=== PATIENT | female | born 1980 | race Caucasian/White ===

== ENCOUNTER 2018-01-21 17:46 | Inpatient (IN) | payer OTHER ==
--- NOTE | 2018-01-21 18:12 | HP ---
General Information - Reason for Visit contractions q3 minutes - General Information Maternal Age: 37 Grav: 4 Para: 2 SAB: 1 IEA: 0 Estimated Due Date: 01/24/18 Determined By: Early Ultrasound Maternal Blood Type and Rh: A Negative - Results this Serology/RPR Result: Non-Reactive Rubella Result: Immune HBsAg Result: Negative HIV Result: Negative GBS Culture Result: Negative Past Medical History Delivery History: Hx Uncomplicated Vaginal Delivery Pertinent Past Medical History: Non-Contributory Pertinent Past Surgical History: None Pertinent Family History: Non-Contributory - Antepartal Records Antepartal Records: Reviewed, Uncomplicated Review of Systems Constitutional: Uncomfortable Genitourinary: No Bleeding, No Leaking Fluid Musculoskeletal: Contractions Movement: Normal Exam Allergies/Adverse Reactions: Allergies No Known Allergies Allergy (Verified 01/21/18 17:29) - Measurements Pre- Weight: 130 lb - Exam Breast: Breast Exam Deferred Extremities: No Edema Heart: Normal Rhythm/Heart Sounds HEENT: No Significant Findings Lungs: Clear Bilaterally Rectal: Rectal Exam Deferred Reflexes: DTR 2+ Targeted Exam Findings See L&D Outpatient Visit Provider Note for Findings: N/A Cervical Exam: 7cm Effacement: 80% Station: -1 Presenting Part: Vertex Membrane Status: Intact EFM Findings - External Monitor Findings External Monitor Findings: Accelerations Present, Variability Moderate, Baseline Stable Contractions: Regular, Moderate, 45-90 Seconds Assessment/Plan - Assessment 39 weeks in active labor pt wants an epidural - Plan Plan: Admit - Anticipate Vaginal Delivery
[2018-01-21 18:24] LABS: ABS Basophils 0.1 10^3/ul (0-0.2); ABS Eosinophils 0.3 10^3/ul (0-0.6); ABS Lymphocytes 1.5 10^3/ul (1.0-4.8); ABS Monocytes 0.9 10^3/ul (0-0.8); ABS Neutrophils 8.8 10^3/ul (1.5-7.7); ABS Nucleated RBC 0 10^3/ul; Eosinophil % 2.2 % (0-6); Hematocrit 39 % (35-47); Hemoglobin 13.6 g/dl (12.0-16.0); Lymphocyte % 13.3 % (25-47); Mean Corpuscular HGB Conc 35 g/dl (31-36); Mean Corpuscular Hemoglobin 30 pg (27-31); Mean Corpuscular Volume 88 fL (80-97); Mean Platelet Volume 10.5 um3 (7.4-10.4); Nucleated Red Blood Cells % 0; Platelet Count 112 10^3/ul (150-450); Red Blood Count 4.45 10^6/ul (4.00-5.40); Red Cell Distribution Width 14 % (10.5-15); White Blood Count 11.6 10^3/ul (3.5-10.8)
[2018-01-21] MEDS ORDERED: fentaNYL* 50 MCG/ML 2 ML VIAL (100 MCG VIAL) ONE (18:35)
[2018-01-21] MEDS ORDERED: OBEPIDURAL* 250 ML EPIDURAL ONE (18:36)
[2018-01-21] MEDS ORDERED: Oxytocin in LR* 20 UNITS/1,000 ML BAG IVPB ONE (19:42)
[2018-01-21] MEDS ORDERED: Witch Hazel PAD* JAR TOPICAL PRN (20:05)
[2018-01-21] MEDS ORDERED: Dibucaine 1% 28.35 GM TUBE PR PRN (20:05)
[2018-01-21] MEDS ORDERED: Glycerin ADULT SUPP PR PRN (20:05)
[2018-01-21] MEDS ORDERED: RHO D Immune Globulin (HUMAN)* 300 MCG = 1,500 I.U. INJ IM ONE (20:13)
--- NOTE | 2018-01-21 20:23 | PROCNOTE ---
[facility] OB: Delivery Note - Nursery Level of Nursery: Regular/Bedside - Perineum Perineal Injury: None/Intact Perineal Repair: None - Events Delivery Events of Note: None Apply
[2018-01-21] MEDS ORDERED: Phytonadione NEONATE INJ* 1 MG/0.5 ML AMP ONE (20:52)
[2018-01-21] MEDS ORDERED: Erythromycin OPTH OINT* APPLIC OINT ONE (20:52)
[2018-01-21] MEDS ORDERED: Hepatitis B Vac PF(ENGERIX-B)* 10 MCG/0.5 ML ML SYRINGE - PEDIATRIC ONE (20:53)
[2018-01-21] MEDS ORDERED: Oxytocin in LR* 20 UNITS/1,000 ML BAG IVPB SCH (21:00)
[2018-01-22] MEDS: Ibuprofen TAB* 600 MG PO PRN ×4 (00:50→20:48)
[2018-01-22] MEDS: Docusate CAP* 100 MG PO SCH ×4 (00:50→20:49)
[2018-01-22] MEDS: Acetaminophen TAB* 325 MG PO PRN ×2 (00:51→12:56)
[2018-01-22 06:29] LABS: ABS Basophils 0 10^3/ul (0-0.2); ABS Eosinophils 0.3 10^3/ul (0-0.6); ABS Lymphocytes 1.8 10^3/ul (1.0-4.8); ABS Monocytes 1.2 10^3/ul (0-0.8); ABS Neutrophils 8.9 10^3/ul (1.5-7.7); ABS Nucleated RBC 0 10^3/ul; Eosinophil % 2.1 % (0-6); Hematocrit 39 % (35-47); Hemoglobin 13.5 g/dl (12.0-16.0); Lymphocyte % 14.8 % (25-47); Mean Corpuscular HGB Conc 34 g/dl (31-36); Mean Corpuscular Hemoglobin 30 pg (27-31); Mean Corpuscular Volume 89 fL (80-97); Mean Platelet Volume 10.7 um3 (7.4-10.4); Nucleated Red Blood Cells % 0.1; Platelet Count 99 10^3/ul (150-450); Red Blood Count 4.44 10^6/ul (4.00-5.40); Red Cell Distribution Width 14 % (10.5-15); White Blood Count 12.1 10^3/ul (3.5-10.8)
[2018-01-22] MEDS ORDERED: Ferrous Gluconate TAB* 324 MG TAB PO SCH (09:00)
[2018-01-22] MEDS: Simethicone TAB* 80 MG TAB.CHEW PO SCH ×2 (09:00→12:43)
[2018-01-22] MEDS ORDERED: Sertraline* 100 MG TAB PO SCH ×2 (21:00)
[2018-01-23] MEDS: Docusate CAP* 100 MG PO SCH ×2 (09:45→15:37)
[2018-01-23] MEDS: Ibuprofen TAB* 600 MG PO PRN ×2 (09:45→18:08)
[2018-01-23 20:07] VITALS: BP 127/79
== END 2018-01-23 20:25 | disposition home or self-care (01) | DRG 775 ==
LOC: MCHOBOUT 17:46 → MCHOB 18:04
PROVIDERS: ADMIT Obstetrics & Gynecology; ATTEND Obstetrics & Gynecology
PROC: 10907ZC Drainage of Amniotic Fluid, Therapeutic from Products of Conception, Via Natural or Artificial Opening (ICD-10-PCS; principal; 2018-01-21)
PROC: 10E0XZZ Delivery of Products of Conception, External Approach (ICD-10-PCS; 2018-01-21)
PROC: 4A1HX4Z Monitoring of Products of Conception, Cardiac Electrical Activity, External Approach (ICD-10-PCS; 2018-01-21)
DX: O99.344 Other mental disorders complicating childbirth (principal); F32.9 Major depressive disorder, single episode, unspecified; F41.9 Anxiety disorder, unspecified; Z3A.39 39 weeks gestation of pregnancy; Z37.0 Single live birth
CPT/HCPCS: 36415; 85025; 85060; 85461; 86850; 86870; 86880; 86900; 86901; 90744; A9270-GY; J2790; J3010; J3430